=== PATIENT | female | born 1980 | race Caucasian/White ===

== ENCOUNTER 2016-09-18 20:45 | Emergency (ER) | payer OTHER ==
[2016-09-18 21:09] LABS: COLOR YELLOW; LEUKOCYTE ESTERASE,URINE NEGATIVE (NEGATIVE); NITRITE,URINE NEGATIVE (NEGATIVE); PH,URINE 6.5 (5.0-7.5)
[2016-09-18 21:12] VITALS: RESP 14; O2SAT 98
[2016-09-18] MEDS ORDERED: KETOROLAC 30 MG/1 ML SDV IVP ONE (21:31)
[2016-09-18 21:36] LABS: % IMMATURE GRANULYOCYTES 0.3 % (0.0-1.1); ABSOLUTE IMMATURE GRANULOCYTES 0.05 10^3/uL (0.00-0.10); ADD DIFF? NO; ADD MORPH? NO; ADD SCAN? NO; ATYPICAL LYMPHOCYTE FLAG 10 (0-99); FRAGMENT RBC FLAG 0 (0-99); HEMATOCRIT 40.9 % (38.0-47.0); HEMOGLOBIN 13.5 g/dL (12.6-16.3); LEFT SHIFT FLG 0 (0-99); LIPEMIA HEMOLYSIS FLAG 80 (0-99); MEAN CELL HEMOGLOBIN 31.4 pg (27.9-34.1); MEAN CELL VOLUME 95.1 fL (81.5-99.8); MEAN PLATELET VOLUME 9.8 fL (8.7-11.7); PLATELET CLUMPS FLAG 30 (0-99); PLATELET COUNT 383 10^3/uL (150-400); RED CELL DISTRIBUTION WIDTH 11.9 % (11.5-15.2)
[2016-09-18] MEDS ORDERED: ASPIRIN 81 MG CHEWABLE TAB PO ONE (21:43)
[2016-09-18 21:44] LABS: ANION GAP 15 mEq/L (8-16); CARBON DIOXIDE 25 mEq/l (22-31); CHLORIDE 101 mEq/L (97-110); CREATININE 0.8 mg/dL (0.6-1.0); GLOMERULAR FILTRATION RATE > 60; GLUCOSE 84 mg/dL (70-100); POTASSIUM 4.2 mEq/L (3.5-5.2); SODIUM 141 mEq/L (134-144)
--- NOTE | 2016-09-18 21:50 | UCPHY ---
H & P Patient Type: Established Chief Complaint Nursing Narrative: UTI symptoms for a week, today R kidney pain Time Seen by Provider: 09/18/16 21:09 HPI/ROS: This patient complains of a left-sided pain that she initially thought was kidney pain in that it is achy in nature but she noticed shortly after its onset over an hour so onset of pleuritic pain. She explains that goes from ache to sharp pain with deep breath and the intensity changes from 4/10 7/10. The pain wraps from the posterior lower chest to the anterior chest with a deep breath. She has not had this type of pain before. The onset of the symptoms occurred this morning. ROS: No fevers or chills. She reports no other constitutional symptoms. She did have URI symptoms lasted for 10 days consisting of nasal congestion and resolved a few days ago. Currently, no HEENT complaints. Pulmonary: No dyspnea but she does not take a full breath due to the pain with a full breath. She reports no cardiovascular symptoms-no lightheadedness. No leg swelling or pain. No heart palpitations. GI-no nausea vomiting diaphoresis. : She reports dysuria, urgency and frequency but reports that she has the symptoms from interstitial cystitis, so she is not convinced that she has UTI. Last menstrual period was normal timing. 10 point ROS is otherwise negative. Source: Patient Exam Limitations: No limitations - Personal History LMP (Females 10-55): 8-14 Days Ago Current Tetanus Diphtheria and Acellular Pertussis (TDAP): Yes - Medical/Surgical History PMH: Otherwise healthy except for interstitial cystitis Hx Asthma: No Hx Chronic Respiratory Disease: No Hx Diabetes: No Hx Cardiac Disease: No Hx Renal Disease: No Hx Cirrhosis: No Hx Alcoholism: No Hx HIV/AIDS: No Hx Splenectomy or Spleen Trauma: No Other PMH: hypoglycemia, adrenal fatigue, GI bleed, root canal - Family History Significant Family History: No pertinent family hx, Other (Negative for DVT or PE) - Social History Smoking Status: Never smoked Alcohol Use: Occasionally Drug Use: None Additional Social History: No recent foreign travel. No other risk factors for DVT or PE - Physical Exam Exam: General Appearance: Vitals are normal Alert, no distress. Eyes: Pupils equal and round no pallor or injection. ENT, Mouth: Mucous membranes moist. Respiratory: There are no retractions, lungs are clear to auscultation. No chest wall tenderness Cardiovascular: Regular rate and rhythm. No murmur gallop or rub. No calf swelling or tenderness. Homans is negative bilaterally. Gastrointestinal: Abdomen is soft and nontender, no masses, bowel sounds normal. Neurological: Alert with no focal deficits Skin: Warm and dry, no rashes. Musculoskeletal: Neck is supple nontender. Extremities are symmetrical, full range of motion. Psychiatric: Mood and affect are normal DIFFERENTIAL DIAGNOSIS: After history and physical exam differential diagnosis was considered for pleurisy, PE, pneumonia, splenomegaly, early zoster without rash, musculoskeletal Constitutional: Initial Vital Signs Temperature (C) 36.9 C 09/18/16 20:53 Heart Rate 90 09/18/16 20:53 Respiratory Rate 14 09/18/16 20:53 Blood Pressure 106/63 09/18/16 20:53 O2 Sat (%) 98 09/18/16 20:53 O2 Delivery Mode Room Air Allergies/Adverse Reactions: No Known Allergies Allergy (Verified 09/18/16 20:52) Home Medications: Medication Instructions Recorded Acetaminophen [Tylenol] 08/03/14 Clindamycin 08/03/14 Omeprazole [Prilosec] 08/03/14 Medical Decision Making - Diagnostics EKG Interpretation: 12 lead EKG performed at 9:54 p.m. reveals sinus rhythm at 82 Intervals: Normal throughout ST segments: Normal throughout Overall assessment - normal EKG Imaging: Chest x-ray: Normal by my interpretation ED Course/Re-evaluation: Patient declines Toradol. She accepted aspirin 324. She remained stable without further complaints. Review of her labs reveals leukocytosis with a left shift. Her D-dimer is negative. Urinalysis is normal and is negative. Given lack of risk factors for PE and negative D-dimer think we have effectively ruled this diagnosis out. Normal chest x-ray rules out pneumothorax , pneumonia or lung lesion. Given her recent viral URI and pleuritic pain with otherwise negative workup findings are most consistent with pleurisy. I counseled her regarding this. - Data Points Laboratory Results: Laboratory Results 09/18/16 21:10 09/18/16 21:10 09/18/16 09/18/16 09/18/16 21:35 21:10 21:00 WBC 14.36 H 10^3/uL (3.80-9.50) RBC 4.30 10^6/uL (4.18-5.33) Hgb 13.5 g/dL (12.6-16.3) Hct 40.9 % (38.0-47.0) MCV 95.1 fL (81.5-99.8) MCH 31.4 pg (27.9-34.1) MCHC 33.0 g/dL (32.4-36.7) RDW 11.9 % (11.5-15.2) Plt Count 383 10^3/uL (150-400) MPV 9.8 fL (8.7-11.7) Neut % (Auto) 57.3 % (39.3-74.2) Lymph % (Auto) 33.1 % (15.0-45.0) [place] % (Auto) 7.5 % (4.5-13.0) Eos % (Auto) 1.5 % (0.6-7.6) Baso % (Auto) 0.3 % (0.3-1.7) Nucleat RBC Rel Count 0.0 % (0.0-0.2) Absolute Neuts (auto) 8.21 H 10^3/uL (1.70-6.50) Absolute Lymphs (auto) 4.76 H 10^3/uL (1.00-3.00) Absolute Monos (auto) 1.08 H 10^3/uL (0.30-0.80) Absolute Eos (auto) 0.22 10^3/uL (0.03-0.40) Absolute Basos (auto) 0.04 10^3/uL (0.02-0.10) Absolute Nucleated RBC 0.00 10^3/uL (0-0.01) Immature Gran % 0.3 % (0.0-1.1) Immature Gran # 0.05 10^3/uL (0.00-0.10) D-Dimer < 0.27 ug/mLFEU (0.00-0.50) Sodium 141 mEq/L (134-144) Potassium 4.2 mEq/L (3.5-5.2) Chloride 101 mEq/L (97-110) Carbon Dioxide 25 mEq/l (22-31) Anion Gap 15 mEq/L (8-16) BUN 18 mg/dL (7-23) Creatinine 0.8 mg/dL (0.6-1.0) Estimated GFR > 60 Glucose 84 mg/dL (70-100) Calcium 10.0 mg/dL (8.5-10.4) Urine Color Urine Appearance Urine pH Ur Specific [place] Urine Protein Urine Ketones Urine Blood Urine Nitrate Urine Bilirubin Urine Urobilinogen Ur Leukocyte Esterase Urine Glucose Urine Test NEGATIVE 09/18/16 09:00 WBC RBC Hgb Hct MCV MCH MCHC RDW Plt Count MPV Neut % (Auto) Lymph % (Auto) [place] % (Auto) Eos % (Auto) Baso % (Auto) Nucleat RBC Rel Count Absolute Neuts (auto) Absolute Lymphs (auto) Absolute Monos (auto) Absolute Eos (auto) Absolute Basos (auto) Absolute Nucleated RBC Immature Gran % Immature Gran # D-Dimer Sodium Potassium Chloride Carbon Dioxide Anion Gap BUN Creatinine Estimated GFR Glucose Calcium Urine Color YELLOW Urine Appearance CLEAR Urine pH 6.5 (5.0-7.5) Ur Specific [place] 1.010 (1.002-1.030) Urine Protein NEGATIVE (NEGATIVE) Urine Ketones NEGATIVE (NEGATIVE) Urine Blood NEGATIVE (NEGATIVE) Urine Nitrate NEGATIVE (NEGATIVE) Urine Bilirubin NEGATIVE (NEGATIVE) Urine Urobilinogen 0.2 EU (0.2-1.0) Ur Leukocyte Esterase NEGATIVE (NEGATIVE) Urine Glucose NEGATIVE (NEGATIVE) Urine Test Medications Given: Discontinued Medications Aspirin (Aspirin) 324 mg PO EDNOW ONE Stop: 09/18/16 21:44 Last Admin: 09/18/16 22:04 Dose: 324 mg Departure - Departure Disposition: Home, Routine, Self-Care Clinical Impression: Pleurisy Condition: Good Instructions: Pleurisy (ED) Additional Instructions: Diagnosis: Pleurisy Plan: Take ibuprofen or Naprosyn anti-inflammatory regularly until symptoms resolve. Symptoms may last for typically anywhere from 5-14 days. You can take Tylenol in addition for discomfort if needed. Follow up with the primary care physician for any ongoing symptoms Go to the emergency department for any significant worsening despite the treatment plan Referrals: Rena Ocampo [Primary Care Provider] - As per Instructions - PQRS PQRS Measurement: NA
--- NOTE | 2016-09-18 21:56 | CPEKG ---
Heart Rate: 82 RR Interval: 732 P-R Interval: 168 QRSD Interval: 82 QT Interval: 388 QTC Interval: 453 P [place]: 10 QRS [place]: 73 T Wave [place]: 54 EKG Severity - NORMAL ECG - EKG Impression: SINUS RHYTHM Electronically Signed By: Herve Fleming 18-Sep-2016 22:08:40
--- NOTE | 2016-09-18 22:21 | DX ---
PA and Lateral Chest History: Chest pain. Comparison to the previous PA and lateral chest March 23, 2014. Findings: The heart and mediastinum are normal. Pulmonary vascularity is normal. The lungs are clear. There is no pleural fluid. A pneumothorax is not identified. There is been no significant change fro m the prior study. Impression: Stable chest negative for acute abnormality. Specifically, a source for chest pain is not identified.
[2016-09-18 22:26] VITALS: BP 110/60; PULSE 72; TEMP 98.2
== END 2016-09-18 22:25 | disposition home or self-care (01) ==
LOC: CED 20:45
DX: R09.1 Pleurisy (principal)
CPT/HCPCS: 71020-PO; 80048-PO; 81003-PO; 81025-PO; 85025-PO; 85378-PO; 93010-PO; 99215-PO; G0463-PO; J1885